=== PATIENT | male | born 1980 | race Caucasian/White ===

== ENCOUNTER 2019-01-03 20:35 | Emergency (ER) | payer BC ==
[~2019-01-03] VITALS: Ht 180.3 cm; Wt 136.1 kg
[2019-01-03 22:21] LABS: BILIRUBIN,URINE NEGATIVE (NEG); CLARITY,URINE CLEAR; COLOR,URINE YELLOW; NITRITE,URINE NEGATIVE (NEG); PROTEIN,URINE NEGATIVE (NEG-TRACE); UROBILINOGEN,URINE 0.2 mg/dL (0.2 mg/dL)
[2019-01-03 22:26] LABS: BACTERIA,URINE 0 /HPF (0-FEW); RBC,URINE 0 /HPF (0-2); WBC,URINE OCC /HPF (0-4)
[2019-01-03] MEDS ORDERED: IBUPROFEN 400 MG TABLET. PO ONE (22:30)
[2019-01-03] MEDS ORDERED: IPRATRPIUM/ALBUTEROL 0.5/2.5MG 3 ML NEBU. NEB ONE (22:30)
--- NOTE | 2019-01-03 22:30 | RAD ---
EXAM: Chest, 2 views. HISTORY: Cough. COMPARISON: None. FINDINGS: 2 views of the chest are obtained. There is no infiltrate, pleural effusion or pneumothorax. There is bilateral hilar prominence likely due to prominent central pulmonary vascular shadows. IMPRESSION: No acute pulmonary finding. Electronically signed by: Demetrice Owens MD (01/03/2019 10:27 PM) [id number]
[2019-01-03 22:44] LABS: INFLUENZA A PATIENT NEGATIVE (NEGATIVE); INFLUENZA B PATIENT NEGATIVE (NEGATIVE)
[2019-01-03] MEDS ORDERED: DOXY100C2 PO (23:31)
[2019-01-03] MEDS ORDERED: PRED50TA PO (23:31)
--- NOTE | 2019-01-03 23:32 | PHYS DOC ---
Past Medical History Past Medical History: No Pertinent History (NIKO NIEVES APRN) Past Surgical History: No Surgical History (NIKO NIEVES APRN) Alcohol Use: None Drug Use: None (NIKO NIEVES APRN) Adult General Chief Complaint Chief Complaint: FEVER HPI HPI 38 y/o male presents to ER for c/o fever, prod. cough, bodyaches, decreased appetite, and generalized fatigue. He reports his son was sick last week with similar illness. He denies any recent travel. He reports he took aspirin at 7 p.m. and tylenol earlier at 2 p.m. for fever. He denies N/V/D, urinary sx, SOA, or CP/palpitations. He denies having flu vaccine. He reports he smokes 1/2 ppd. (NIKO NIEVES APRN) Review of Systems Review of Systems Constitutional: Reports fever, generalized fatigue, bodyaches Eyes: Denies change in visual acuity, redness, or eye pain [] HENT: Denies sore throat. Reports sinus congestion Respiratory: Denies shortness of breath. Reports prod. cough with green/white phlegm Cardiovascular: Denies CP GI: Denies abdominal pain, nausea, vomiting, bloody stools or diarrhea [] : Denies dysuria or hematuria [] Musculoskeletal: Denies back/neck stiffness Integument: Denies rash or skin lesions [] Neurologic: Denies headache, focal weakness or sensory changes. Denies dizziness Endocrine: Denies polyuria or polydipsia [] All other systems were reviewed and found to be within normal limits, except as documented in this note. (NIKO NIEVES APRN) Current Medications Current Medications Current Medications Medications (Trade) Dose Ordered Sig/[place] Start Time Stop Time Status Last Admin Dose Admin Albuterol/ Ipratropium (Duoneb) 3 ml 1X ONCE 01/03/19 22:30 01/03/19 22:31 DC 01/03/19 22:37 3 ML Ibuprofen (Motrin) 600 mg 1X ONCE 01/03/19 22:30 01/03/19 22:31 DC 01/03/19 22:27 600 MG (CESARIO BENNETT DO) Allergies Allergies Allergies Coded Allergies Type Severity Reaction Last Updated Verified No Known Drug Allergies 01/03/19 No (CESARIO BENNETT DO) Physical Exam Physical Exam Constitutional: Well developed, well nourished, no acute distress, non-toxic appearance. [] HENT: Normocephalic, atraumatic, bilateral ears with erythema at TM without bulging/perforation/purulence, oropharynx moist- mild pharyngeal erythema without swelling- uvula midline, no oral exudates, nose normal. [] Eyes: Pupils equaL, conjunctiva normal, no discharge. [] Neck: Normal range of motion, no tenderness- no nuchal rigidity, supple, no stridor/gross adenopathy Cardiovascular: Heart rate regular rhythm, no murmur [] Lungs & Thorax: Bilateral breath sounds clear to auscultation- diminished air movement throughout with less air movement in bases. Resp. equal/nonlabored. Pt speaking in full sentences Abdomen: Bowel sounds normal, soft, no tenderness Skin: Warm, dry, no erythema, no rash. [] Back: No tenderness, no CVA tenderness. [] Extremities: No tenderness, no cyanosis, no clubbing, ROM intact, no edema. [] Neurologic: Alert and oriented X 3, normal motor function, normal sensory function, no focal deficits noted. [] Psychologic: Affect normal, judgement normal, mood normal. [] (NIKO NIEVES APRN) Current Patient Data Lab Values Laboratory Tests Test 01/03/19 21:50 Urine Collection Type Unknown Urine Color Yellow Urine Clarity Clear Urine pH 7.0 Urine Specific [place] 1.010 Urine Protein Negative mg/dL (NEG-TRACE) Urine Glucose (UA) Negative mg/dL (NEG) Urine Ketones (Stick) Negative mg/dL (NEG) Urine Blood Negative (NEG) Urine Nitrite Negative (NEG) Urine Bilirubin Negative (NEG) Urine Urobilinogen Dipstick 0.2 mg/dL (0.2 mg/dL) Urine Leukocyte Esterase Negative (NEG) Urine RBC 0 /HPF (0-2) Urine WBC Occ /HPF (0-4) Urine Bacteria 0 /HPF (0-FEW) Influenza Type A Antigen Negative (NEGATIVE) Influenza Type B Antigen Negative (NEGATIVE) (CESARIO BENNETT DO) EKG EKG [] (NIKO NIEVES APRN) Radiology/Procedures Radiology/Procedures PROCEDURE: CHEST PA & LATERAL EXAM: Chest, 2 views. HISTORY: Cough. COMPARISON: None. FINDINGS: 2 views of the chest are obtained. There is no infiltrate, pleural effusion or pneumothorax. There is bilateral hilar prominence likely due to prominent central pulmonary vascular shadows. IMPRESSION: No acute pulmonary finding. Electronically signed by: Demetrice Quarles MD (01/03/2019 10:27 PM) [facility] DICTATED and SIGNED BY: DEMETRICE QUARLES MD DATE: 01/03/192226 (NIKO NIEVES APRN) Course & Med Decision Making Course & Med Decision Making Pertinent Labs and Imaging studies reviewed. (See chart for details) 2320: Pt was evaluated in the ER for flulike illness. Patient had negative flu test. Patient is a daily smoker and reported he was coughing up green phlegm. Chest x-ray was negative for acute findings. Duoneb was given while in the ER along with dose of ibuprofen- on reevaluation patient has increased air movement throughout all lung nunes. No visible distress at this time with oxygenation 9 7% on room air HR 96. Patient reports he does feel like he is moving more air. Patient states he has an albuterol inhaler at home. Discussed steroids and patient is preferring not to have dose of prednisone while in the ER but is okay with prescription with discharge paperwork. Will also provide prescription for 48 hour watch and wait prescription for doxycycline with education that if symptoms persist or worsen within 48 hours with fever/prod. cough then he could start Rx. Patient was encouraged to increase fluid intake and advised on use of Tylenol and/or ibuprofen for fever and pain control. Patient was educated to start the prednisone prescription tomorrow. Patient to follow-up with his primary care physician if symptoms persist or with concerns. Education provided on signs and symptoms to return to ER for and discharge instructions were discussed. Patient continued to deny any shortness of air or chest pain. Patient was afebrile while in the ER. (NIKO NIEVES APRN) Dragon Disclaimer Dragon Disclaimer This electronic medical record was generated, in whole or in part, using a voice recognition dictation system. (NIKO NIEVES APRN) Departure Departure Impression: Primary Impression: Flu-like symptoms Additional Impressions: Cough Fever Disposition: HOME, SELF-CARE Condition: STABLE Referrals: NO PCP (PCP) Patient Instructions: Cough, Adult, Fever, Smoking Cessation, Viral Syndrome Additional Instructions: Drink plenty of fluids. Avoid smoking. If symptoms persist follow-up with primary care physician for reevaluation and further care. You are being provided with a prescription for doxycycline this medication is a "wait and watch" medication which should be started in 48 hours if your symptoms persist or worsen with fever and productive cough. If your symptoms improved within 48 hours this prescription is not necessary. Start the prednisone prescription as prescribed. Use your albuterol inhaler as prescribed for coughing episodes. Scripts Doxycycline Hyclate (DOXYCYCLINE HYCLATE) 100 Mg Capsule 1 CAP PO BID, #14 CAP 0 Refills Prov: NIKO NIEVES APRN 01/03/19 Prednisone (PREDNISONE) 50 Mg Tablet 1 TAB PO DAILY, #5 TAB 0 Refills Prov: NIKO NIEVES APRN 01/03/19 Attending Signature Attending Signature I have reviewed the PA/LE[employer] OPERATOR's note and plan of care. I was available for consultation as needed during the patient's visit in the emergency department. I agree with the clinical impression, plan, and disposition. (CESARIO BENNETT DO) Problem Qualifiers NIKO NIEVES APRN Jan 03, 2019 23:32 CESARIO BENNETT DO Feb 25, 2019 05:31
[2019-01-03 23:47] VITALS: BP 144/81
== END 2019-01-03 23:56 | disposition home or self-care (01) ==
LOC: ER 20:35
DX: R05 Cough (principal); R50.9 Fever, unspecified
CPT/HCPCS: 71046; 81001; 87804; 94640; 99284; J7620